=== PATIENT | male | born 1960 | race Caucasian/White ===

== ENCOUNTER → 2019-01-26 | Outpatient (CLI) | payer OTHER ==
[2019-01-26 16:42] LABS: APPEARANCE, URINE CLEAR (CLEAR); BACTERIA, URINE AUTO NEGATIVE (NEGATIVE); BILIRUBIN, URINE AUTO NEGATIVE (NEGATIVE); BLOOD, URINE BLOOD 1+ (NEGATIVE); COLOR, URINE STRAW (YELLOW); GLUCOSE, URINE (UA) AUTO NEGATIVE (NEGATIVE); KETONE, URINE AUTO NEGATIVE (NEGATIVE); LEUKOCYTE ESTERASE, URINE AUTO NEGATIVE (NEGATIVE); NITRITE, URINE AUTO NEGATIVE (NEGATIVE); PROTEIN, URINE AUTO NEGATIVE (NEGATIVE); RBC, URINE AUTO 0 /HPF (0-3); SPECIFIC GRAVITY URINE AUTO 1.006 (1.002-1.035); SQUAMOUS EPITHELIAL CELL UR AU 0 /HPF (0-6); UROBILINOGEN, URINE AUTO 0.2 mg/dL (0.0-2.0); WBC, URINE AUTO 0 /HPF (0-3)
[2019-01-26 16:59] LABS: BASO # 0.1 10^3/uL (0.0-0.2); BASO % 0.9 % (0.0-1.0); EOS # 0.2 10^3/uL (0.0-0.50); EOS % 2.5 % (0.0-3.0); HEMATOCRIT 44.3 % (42.0-52.0); HEMOGLOBIN 15.3 g/dl (13.5-17.5); LYMPH # 2.7 10^3/uL (1.5-4.5); LYMPH % 42.3 % (24.0-44.0); MEAN CORPUSCULAR HEMOGLOBIN 36.3 pg (27.0-33.0); MEAN CORPUSCULAR HGB CONC 34.5 g/dl (32.0-36.5); MEAN CORPUSCULAR VOLUME 105.2 fl (80.0-96.0); MONO % 15.3 % (0.0-5.0); NEUTROPHILS # 2.5 10^3/uL (1.8-7.7); NEUTROPHILS % 38.7 % (36.0-66.0); PLATELET COUNT, AUTOMATED 234 10^3/uL (150-450); RED BLOOD COUNT 4.21 10^6/uL (4.30-6.10); WHITE BLOOD COUNT 6.5 10^3/uL (4.0-10.0)
[2019-01-26 17:13] LABS: ALBUMIN 3.8 GM/DL (3.2-5.2); ALT/SGPT 44 U/L (12-78); BILIRUBIN,TOTAL 0.6 MG/DL (0.2-1.0); BLOOD UREA NITROGEN 15 MG/DL (7-18); CALCIUM LEVEL 9.4 MG/DL (8.5-10.1); CARBON DIOXIDE LEVEL 27 MEQ/L (21-32); CHLORIDE LEVEL 105 MEQ/L (98-107); CHOLESTEROL LEVEL 195 MG/DL (<200); CHOLESTEROL RISK RATIO 1.695 (<5); CREATININE FOR GFR 1.01 MG/DL (0.70-1.30); GLOMERULAR FILTRATION RATE > 60.0 (>56); GLUCOSE, FASTING 98 MG/DL (70-100); HDL CHOLESTEROL 115 MG/DL (>40); LDL CHOLESTEROL 65 MG/DL (<100); NON-HDL-C 80 MG/DL; NT-PRO BNP 45 PG/ML (<125); POTASSIUM SERUM 4.9 MEQ/L (3.5-5.1); SODIUM LEVEL 138 MEQ/L (136-145); THYROXINE (T4) 6.8 UG/DL (4.5-12.0); TOTAL PROTEIN 7.3 GM/DL (6.4-8.2); TRIGLYCERIDES LEVEL 73 MG/DL (<150)
[2019-01-26 18:41] LABS: HEMOGLOBIN A1c 5.7 %
== END ==
LOC: M LRY 11:25
PROVIDERS: ATTEND Family Medicine
DX: I10 Essential (primary) hypertension (principal)

== ENCOUNTER → 2019-04-27 | Outpatient (CLI) | payer OTHER | LOC: M LRY 16:41 | PROVIDERS: ATTEND Family Medicine | DX: E87.5 Hyperkalemia (principal) ==

== ENCOUNTER → 2019-08-15 | Outpatient (CLI) | payer OTHER ==
--- NOTE | 2019-08-15 14:00 | REP ---
Clinical: Pain. Technique: AP and lateral views of the right humerus. Findings: Osseous structures, joint spaces, and surrounding soft tissues are normal. Impression: Normal right humerus radiographs. Electronically Signed by Cody Gibbs MD 08/15/2019 01:51 P
== END ==
LOC: M LRY 13:27
PROVIDERS: ATTEND Nurse Practitioner Family
DX: M79.601 Pain in right arm (principal)

== ENCOUNTER → 2020-06-19 | Outpatient (CLI) | payer OTHER ==
--- NOTE | 2020-06-25 12:52 | REP ---
CT CHEST WITHOUT CONTRAST: LOW DOSE SCREENING EXAM HISTORY: Nicotine dependence. No comparison imaging. CT FINDINGS: Digital preliminary design consultant radiograph is unremarkable. There are scattered areas of mild linear fibrosis effecting the right middle lobe, left lower lobe, and left lung apex. There is no visible pulmonary mass or significant pulmonary nodule. Vasculare calcification is noted. There is a small focal calcification along the right diaphragm. The study is otherwise unremarkable. IMPRESSION: Lung RADS category 1 findings. Repeat screening exam suggested in one year. MTDD
== END ==
LOC: M RAD 06:09
PROVIDERS: ATTEND Family Medicine
DX: F17.210 Nicotine dependence, cigarettes, uncomplicated (principal)

== ENCOUNTER → 2021-09-02 | Outpatient (CLI) | payer OTHER | LOC: M RAD 11:12 | PROVIDERS: ATTEND Family Medicine | DX: Z12.2 Encounter for screening for malignant neoplasm of respiratory organs (principal); F17.210 Nicotine dependence, cigarettes, uncomplicated ==

== ENCOUNTER 2022-09-09 20:29 | Observation (INO) | payer OTHER ==
[~2022-09-09] VITALS: Ht 170.2 cm; Wt 91.6 kg
[2022-09-09 21:17] LABS: HEMATOCRIT 40.1 % (42.0-52.0); HEMOGLOBIN 13.7 g/dl (13.5-17.5); MEAN CORPUSCULAR HEMOGLOBIN 35.6 pg (27.0-33.0); MEAN CORPUSCULAR HGB CONC 34.2 g/dl (32.0-36.5); MEAN CORPUSCULAR VOLUME 104.2 fl (80.0-96.0); PLATELET COUNT, AUTOMATED 266 10^3/uL (150-450); RED BLOOD COUNT 3.85 10^6/uL (4.30-6.10); WHITE BLOOD COUNT 10.4 10^3/uL (4.0-10.0)
[2022-09-09 21:27] LABS: ABG BASE EXCESS -4.2 (-2.0-2.0); ABG HCO3 19.3 MEQ/L (22.0-26.0); ABG PARTIAL PRESSURE CO2 31.3 mmHg (35.0-45.0); ABG TOTAL CO2 20.3 MEQ/L (22.0-29.0); ABG pH (ARTERIAL) 7.408 UNITS (7.350-7.450)
[2022-09-09 21:39] LABS: CK-MB VALUE MASS 7.1 NG/ML (<3.6)
[2022-09-09 21:41] LABS: BLOOD UREA NITROGEN 27 MG/DL (9-23); CARBON DIOXIDE LEVEL 25 MMOL/L (20-31); CHLORIDE LEVEL 96 MMOL/L (98-107); CPK CREATINE PHOSPHOKINASE 504 U/L (46-171); CREATININE FOR GFR 1.23 MG/DL (0.70-1.30); GLOMERULAR FILTRATION RATE > 60.0 (>56); GLUCOSE, FASTING 117 MG/DL (60-100); POTASSIUM SERUM 3.8 MMOL/L (3.5-5.1); SODIUM LEVEL 132 MMOL/L (136-145)
[2022-09-09 21:43] LABS: FREE T4 1.39 NG/DL (0.89-1.76)
[2022-09-09 21:44] LABS: THYROID STIMULATING HORMONE 1.005 uIU/ML (0.55-4.78)
[2022-09-09 21:45] LABS: LYMPHOCYTES 37 % (16-44); MONOCYTES 13 % (0-5); NEUTROPHILS 50 % (28-66); PLATELET ESTIMATE NORMAL (NORMAL)
[2022-09-09 21:53] LABS: ETHYL ALCOHOL (ETHANOL) 0.126 % (0.000-0.010)
[2022-09-09 23:08] LABS: MB/CK RELATIVE INDEX 1.09 (< OR =4)
[2022-09-09] MEDS ORDERED: NS 1,000 ML IV ONE (23:25)
[2022-09-09] MEDS ORDERED: UNRESOLVED CLARIFICATION ENTRY XX STA (23:28)
[2022-09-09] MEDS ORDERED: LISI20TA37 PO (23:28)
[2022-09-09] MEDS ORDERED: LEXA1TAB PO (23:28)
[2022-09-09] MEDS ORDERED: HOME MED LIST COMPLETE! XX SCH (23:30)
[2022-09-10] MEDS ORDERED: ALBUTEROL 90 MCG/ACT 8GM HFA INHALER INH PRN (00:15)
[2022-09-10] MEDS ORDERED: ACETAMINOPHEN TAB 650MG DOSE (2X325MG) PO PRN (00:15)
[2022-09-10] MEDS: NS 1,000 ML IV SCH ×2 (00:15→09:38)
[2022-09-10] MEDS ORDERED: NS 1,000 ML IV ONE (03:35)
[2022-09-10] MEDS ORDERED: THIAMINE 200MG 2ML VIAL IM ONE (04:00)
[2022-09-10] MEDS ORDERED: LORazepam 2 MG TAB PO PRN (07:45)
[2022-09-10 08:29] LABS: BASO # 0.1 10^3/uL (0.0-0.2); BASO % 0.6 % (0.0-1.0); EOS % 0.2 % (0.0-3.0); HEMATOCRIT 39.1 % (42.0-52.0); HEMOGLOBIN 13.5 g/dl (13.5-17.5); LYMPH # 2.5 10^3/uL (1.5-5.0); LYMPH % 27.8 % (24.0-44.0); MEAN CORPUSCULAR HEMOGLOBIN 35.7 pg (27.0-33.0); MEAN CORPUSCULAR HGB CONC 34.5 g/dl (32.0-36.5); MEAN CORPUSCULAR VOLUME 103.4 fl (80.0-96.0); MONO # 1.4 10^3/uL (0.0-0.8); MONO % 15.8 % (2.0-8.0); NEUTROPHILS % 55.2 % (36.0-66.0); PLATELET COUNT, AUTOMATED 283 10^3/uL (150-450); RED BLOOD COUNT 3.78 10^6/uL (4.30-6.10)
[2022-09-10 08:54] LABS: MAGNESIUM LEVEL 1.8 MG/DL (1.8-2.4)
[2022-09-10 08:57] LABS: ALBUMIN 3.5 G/DL (3.2-5.2); ALKALINE PHOSPHATASE 50 U/L (46-116); ALT/SGPT 169 U/L (7.0-40); AST/SGOT 128 U/L (<34); BILIRUBIN,TOTAL 0.9 MG/DL (0.3-1.2); BLOOD UREA NITROGEN 19 MG/DL (9-23); CALCIUM LEVEL 8.8 MG/DL (8.5-10.1); CARBON DIOXIDE LEVEL 25 MMOL/L (20-31); CHLORIDE LEVEL 103 MMOL/L (98-107); CREATININE FOR GFR 0.93 MG/DL (0.70-1.30); GLOMERULAR FILTRATION RATE > 60.0 (>56); GLUCOSE, FASTING 109 MG/DL (60-100); POTASSIUM SERUM 4.6 MMOL/L (3.5-5.1); SODIUM LEVEL 137 MMOL/L (136-145); TOTAL PROTEIN 6.7 G/DL (5.7-8.2)
[2022-09-10] MEDS: FOLIC ACID 1MG TAB PO SCH (09:34)
[2022-09-10] MEDS: MULTIVITAMINS/MINERALS THERAP 1 TAB PO SCH (09:34)
[2022-09-10] MEDS ORDERED: IPRATROPIUM 0.5MG/ALBUTEROL 2.5MG INH SOL UD 3ML (DUONEB) NEB PRN (09:35)
[2022-09-10] MEDS ORDERED: ISOVUE-370 76% 100ML VIAL As Ordered ONE (10:40)
[2022-09-10 13:24] LABS: HEPATITIS B SURFACE ANTIGEN NEGATIVE (NEGATIVE)
[2022-09-10] MEDS: AUGMENTIN 875 MG TAB PO SCH ×2 (13:29→21:52)
[2022-09-10 13:46] LABS: HEPATITIS B CORE ANTIBODY IGM NEGATIVE (NEGATIVE); HEPATITIS C VIRUS ABY INDEX 0.1 INDEX (<0.8)
[2022-09-10 15:10] VITALS: BP_SYST 135; BP_SYST 142; BP_SYST 146; BP_DIAS 79; BP_DIAS 80
[2022-09-10 21:54] VITALS: BP 135/89
[2022-09-10 22:04] VITALS: BP_SYST 133; BP_SYST 135; BP_SYST 137; BP_DIAS 87; BP_DIAS 89
[2022-09-11 05:33] VITALS: BP 138/87
[2022-09-11 06:00] VITALS: BP_SYST 138; BP_SYST 142; BP_SYST 146; BP_DIAS 87; BP_DIAS 90; BP_DIAS 96
[2022-09-11 06:43] LABS: BASO # 0.1 10^3/uL (0.0-0.2); BASO % 0.7 % (0.0-1.0); EOS # 0.1 10^3/uL (0.0-0.5); EOS % 1.2 % (0.0-3.0); HEMATOCRIT 37.7 % (42.0-52.0); LYMPH # 3.1 10^3/uL (1.5-5.0); LYMPH % 34.1 % (24.0-44.0); MEAN CORPUSCULAR HEMOGLOBIN 36.1 pg (27.0-33.0); MEAN CORPUSCULAR HGB CONC 34.5 g/dl (32.0-36.5); MEAN CORPUSCULAR VOLUME 104.7 fl (80.0-96.0); MONO % 17.1 % (2.0-8.0); NEUTROPHILS # 4.3 10^3/uL (1.5-8.5); NEUTROPHILS % 46.6 % (36.0-66.0); PLATELET COUNT, AUTOMATED 265 10^3/uL (150-450); WHITE BLOOD COUNT 9.2 10^3/uL (4.0-10.0)
[2022-09-11 07:14] LABS: ALBUMIN 3.4 G/DL (3.2-5.2); ALKALINE PHOSPHATASE 48 U/L (46-116); ALT/SGPT 140 U/L (7.0-40); AST/SGOT 106 U/L (<34); BLOOD UREA NITROGEN 16 MG/DL (9-23); CARBON DIOXIDE LEVEL 27 MMOL/L (20-31); CHLORIDE LEVEL 105 MMOL/L (98-107); CREATININE FOR GFR 0.96 MG/DL (0.70-1.30); GLOMERULAR FILTRATION RATE > 60.0 (>56); GLUCOSE, FASTING 119 MG/DL (60-100); POTASSIUM SERUM 4.5 MMOL/L (3.5-5.1); SODIUM LEVEL 140 MMOL/L (136-145); TOTAL PROTEIN 6.5 G/DL (5.7-8.2)
[2022-09-11 07:24] LABS: MONO # 1.6 10^3/uL (0.0-0.8)
[2022-09-11 09:00] VITALS: BP 136/84
[2022-09-11] MEDS: FOLIC ACID 1MG TAB PO SCH (09:44)
[2022-09-11] MEDS: MULTIVITAMINS/MINERALS THERAP 1 TAB PO SCH (09:44)
[2022-09-11] MEDS: THIAMINE 100 MG TAB PO SCH (09:44)
[2022-09-11] MEDS: AUGMENTIN 875 MG TAB PO SCH ×2 (09:44→22:16)
[2022-09-11 10:16] LABS: URIC ACID 4.8 MG/DL (3.7-9.2)
[2022-09-11 10:46] LABS: ERYTHROCYTE SEDIMENTATION RATE 43 mm/hr (0-20)
[2022-09-11 14:00] VITALS: BP_SYST 136; BP_SYST 143; BP_DIAS 81; BP_DIAS 84
[2022-09-11 22:00] VITALS: BP 135/68
[2022-09-11] MEDS: HEPARIN SOD (PORCINE) 5000UNITS/ML 1ML VIAL/SYRINGE SQ SCH (22:16)
[2022-09-12 06:00] VITALS: BP 133/70
[2022-09-12] MEDS: HEPARIN SOD (PORCINE) 5000UNITS/ML 1ML VIAL/SYRINGE SQ SCH (06:01)
[2022-09-12 06:52] LABS: BASO # 0.1 10^3/uL (0.0-0.2); BASO % 0.9 % (0.0-1.0); EOS # 0.2 10^3/uL (0.0-0.5); EOS % 2.9 % (0.0-3.0); HEMATOCRIT 38.3 % (42.0-52.0); LYMPH % 37.5 % (24.0-44.0); MEAN CORPUSCULAR HEMOGLOBIN 35.8 pg (27.0-33.0); MEAN CORPUSCULAR HGB CONC 33.9 g/dl (32.0-36.5); MEAN CORPUSCULAR VOLUME 105.5 fl (80.0-96.0); MONO # 1.4 10^3/uL (0.0-0.8); MONO % 17.8 % (2.0-8.0); NEUTROPHILS # 3.3 10^3/uL (1.5-8.5); NEUTROPHILS % 40.5 % (36.0-66.0); PLATELET COUNT, AUTOMATED 243 10^3/uL (150-450); RED BLOOD COUNT 3.63 10^6/uL (4.30-6.10)
[2022-09-12 07:14] LABS: MAGNESIUM LEVEL 1.9 MG/DL (1.8-2.4)
[2022-09-12 07:16] LABS: ALBUMIN 3.2 G/DL (3.2-5.2); ALKALINE PHOSPHATASE 47 U/L (46-116); ALT/SGPT 139 U/L (7.0-40); AST/SGOT 119 U/L (<34); BILIRUBIN,TOTAL 0.7 MG/DL (0.3-1.2); BLOOD UREA NITROGEN 13 MG/DL (9-23); CALCIUM LEVEL 9.1 MG/DL (8.5-10.1); CARBON DIOXIDE LEVEL 29 MMOL/L (20-31); CHLORIDE LEVEL 102 MMOL/L (98-107); CREATININE FOR GFR 1.04 MG/DL (0.70-1.30); GLOMERULAR FILTRATION RATE > 60.0 (>56); GLUCOSE, FASTING 105 MG/DL (60-100); POTASSIUM SERUM 4.3 MMOL/L (3.5-5.1); SODIUM LEVEL 139 MMOL/L (136-145); TOTAL PROTEIN 6.4 G/DL (5.7-8.2)
[2022-09-12] MEDS: MULTIVITAMINS/MINERALS THERAP 1 TAB PO SCH (09:04)
[2022-09-12] MEDS: THIAMINE 100 MG TAB PO SCH (09:04)
[2022-09-12] MEDS: FOLIC ACID 1MG TAB PO SCH (09:04)
[2022-09-12] MEDS: AUGMENTIN 875 MG TAB PO SCH (09:04)
[2022-09-12] MEDS ORDERED: VITMTA PO (12:17)
[2022-09-12] MEDS ORDERED: AMOX875T2 PO (12:17)
[2022-09-12] MEDS ORDERED: VENTAER INH (12:17)
[2022-09-12] MEDS ORDERED: THIA100TA PO (12:17)
[2022-09-12] MEDS ORDERED: FOLI1TAB11 PO (12:17)
[2022-09-12] MEDS ORDERED: LISI20TA33 PO (12:26)
== END 2022-09-12 13:42 | disposition home or self-care (01) ==
LOC: M ED 20:29 → M ED INP 20:30 → ENRESERV 09-10 13:40 → M MSPAV 09-10 15:11
PROVIDERS: ADMIT Internal Medicine; ATTEND Internal Medicine
DX: R55 Syncope and collapse (principal); S63.617A Unspecified sprain of left little finger, initial encounter; S00.03XA Contusion of scalp, initial encounter; W10.8XXA Fall (on) (from) other stairs and steps, initial encounter; Y92.098 Other place in other non-institutional residence as the place of occurrence of the external cause; E87.20 Acidosis, unspecified; J32.9 Chronic sinusitis, unspecified; E87.1 Hypo-osmolality and hyponatremia; I10 Essential (primary) hypertension; R06.2 Wheezing; K76.0 Fatty (change of) liver, not elsewhere classified; I27.20 Pulmonary hypertension, unspecified; I36.1 Nonrheumatic tricuspid (valve) insufficiency; Z87.891 Personal history of nicotine dependence; F10.20 Alcohol dependence, uncomplicated; R74.01 Elevation of levels of liver transaminase levels; F32.A Depression, unspecified; Z79.899 Other long term (current) drug therapy
CPT/HCPCS: 36415; 36600; 70450; 70486; 70491; 71045; 71275; 72125; 72190; 73130; 73140; 76376; 76705; 80048; 80053; 82077; 82550; 82553; 82803; 83605; 83735; 84145; 84439; 84443; 84484; 84550; 85025; 85379; 85652; 86140; 86705; 86709; 86803; 87340; 87486; 87581; 87633; 87798; 93005; 93041; 93306; 93356; 93970; 94640; 94760; 96360; 96361; 96372; 97161; 97165; 97530; 99285; J3411

== ENCOUNTER → 2022-11-07 | Outpatient (CLI) | payer OTHER ==
[~2022-11-07] MED LIST: AMOX875T2 PO; FOLI1TAB11 PO; LEXA1TAB PO; LISI20TA33 PO; LISI20TA37 PO; THIA100TA PO; VENTAER INH; VITMTA PO
== END ==
LOC: M RAD 16:18
PROVIDERS: ATTEND Family Medicine
DX: R91.8 Other nonspecific abnormal finding of lung field (principal); F17.210 Nicotine dependence, cigarettes, uncomplicated

== ENCOUNTER → 2023-11-16 | Outpatient (CLI) | payer OTHER ==
[~2023-11-16] MED LIST changes: +ISOVUE-370 76% 100ML VIAL As Ordered ONE
== END ==
LOC: M RAD 08:11
PROVIDERS: ATTEND Family Medicine
DX: R91.1 Solitary pulmonary nodule (principal)
CPT/HCPCS: 71260; Q9967

== ENCOUNTER → 2024-05-03 | Outpatient (CLI) | payer OTHER ==
[~2024-05-03] MED LIST changes: -ISOVUE-370 76% 100ML VIAL As Ordered ONE
[2024-05-03 13:39] LABS: BASO # 0.1 10^3/uL (0.0-0.2); BASO % 0.9 % (0.0-1.0); EOS # 0.1 10^3/uL (0.0-0.5); EOS % 0.8 % (0.0-3.0); HEMATOCRIT 41.9 % (42.0-52.0); HEMOGLOBIN 14.4 g/dl (13.5-17.5); LYMPH # 2.2 10^3/uL (1.5-5.0); LYMPH % 34.4 % (24.0-44.0); MEAN CORPUSCULAR HEMOGLOBIN 36.5 pg (27.0-33.0); MEAN CORPUSCULAR HGB CONC 34.4 g/dl (32.0-36.5); MEAN CORPUSCULAR VOLUME 106.3 fl (80.0-96.0); MONO % 16.2 % (2.0-8.0); NEUTROPHILS # 3.1 10^3/uL (1.5-8.5); NEUTROPHILS % 47.5 % (36.0-66.0); PLATELET COUNT, AUTOMATED 240 10^3/uL (150-450); RED BLOOD COUNT 3.94 10^6/uL (4.30-6.10); WHITE BLOOD COUNT 6.4 10^3/uL (4.0-10.0)
[2024-05-03 14:32] LABS: ALBUMIN 3.6 G/DL (3.2-5.2); ALKALINE PHOSPHATASE 56 U/L (46-116); ALT/SGPT 111 U/L (7.0-40); AST/SGOT 113 U/L (<34); BILIRUBIN,TOTAL 0.5 MG/DL (0.3-1.2); BLOOD UREA NITROGEN 11 MG/DL (9-23); CALCIUM LEVEL 9.6 MG/DL (8.3-10.6); CARBON DIOXIDE LEVEL 32 MMOL/L (20-31); CHLORIDE LEVEL 107 MMOL/L (98-107); CREATININE FOR GFR 0.84 MG/DL (0.70-1.30); FERRITIN 530.6 NG/ML (10.5-307.3); FREE T4 0.98 NG/DL (0.89-1.76); GLOMERULAR FILTRATION RATE > 60.0 (>49); GLUCOSE, FASTING 123 MG/DL (74-106); IRON (FE) 172 UG/DL (65-175); PERCENT SATURATION 50.3 % (19.7-50.0); POTASSIUM SERUM 5.2 MMOL/L (3.5-5.1); SODIUM LEVEL 143 MMOL/L (136-145); THYROID STIMULATING HORMONE 1.375 uIU/ML (0.55-4.78); TOTAL IRON BINDING CAPACITY 342 UG/DL (250-425); TOTAL PROTEIN 7.5 G/DL (5.7-8.2)
== END ==
LOC: M LAB 09:34 → M PLALAB 09:34
PROVIDERS: ATTEND Internal Medicine Hematology
DX: E83.19 Other disorders of iron metabolism (principal); R74.8 Abnormal levels of other serum enzymes